=== PATIENT | female | born 1970 | race African-American/Black ===

== ENCOUNTER 2016-04-06 09:40 | Emergency (ER) ==
[2016-04-06] MEDS ORDERED: DUONEB (A & A) INH ONE ×2 (10:53→11:10)
[2016-04-06] MEDS ORDERED: DECADRON IM ONE (10:53)
--- NOTE | 2016-04-06 10:54 | PROVIDER DOCUMENTATION ---
HPI-Respiratory General - General Source: patient - History of Present Illness-Resp Quality of Pain: reports: none Severity in ED: reports: moderate Onset/Duration: reports: 3 days ago Timing: reports: getting worse Cough Quality/Degree: reports: dry cough Current Respiratory Medication Therapy: Initiated see nurses note Modifying Factors: worse with: exertion Similar Symptoms Previously?: Yes Recently seen or treated by another doctor?: Yes <Salome Schmitz - Last Filed: 04/06/16 11:13> - General Source: patient <Adela Aragon - Last Filed: 04/06/16 12:03> - General Chief Complaint: Wheezing Stated Complaint: ASTHMA/SOB Time Seen by Provider: 04/06/16 10:50 Allergies/Adverse Reactions: Patient Allergies Allergy/AdvReac Type Severity Reaction Status Date / Time acetaminophen [From Lortab] AdvReac NAUSEA/VOMI Verified 04/06/16 10:12 TING hydrocodone bitartrate * AdvReac NAUSEA/VOMI Verified 04/06/16 10:12 [From Lortab] TING Home Medications: Albuterol Sulfate [Proair Hfa] 1 dose 04/06/16 Albuterol [Albuterol Neb] 1 dose 04/06/16 - History of Present Illness-Resp Nature of Presenting Problem: Hx of asthma takes albuterol treatments at home reports started having sob on monday and then on Monday cough with fever yesterday. PT reports wheezing and dyspnea on exertion. Went to see this morning which sent pt to [facility] (Salome Schmitz) Review of Systems - Adult - REVIEW OF SYSTEMS - ADULT Constitutional: denies: chills, fever, fatique Eyes: reports: no symptoms reported Ears, Nose, Mouth & Throat: reports: no symptoms reported Cardiovascular: denies: chest pain, irregular heart rate, orthopnea Respiratory: reports: cough, dyspnea on exertion, shortness of breath, wheezing . denies: excessive sputum production, hemoptysis, pleurisy Gastrointestinal: reports: no symptoms reported Genitourinary: reports: no symptoms reported Musculoskeletal: reports: no symptoms reported Integumentary: reports: no symptoms reported Neurological: reports: no symptoms reported Psychiatric: reports: no symptoms reported Endocrine: reports: no symptoms reported Hematologic/Lymphatic: reports: no symptoms reported Allergic/Immunologic: reports: no symptoms reported All Other Systems: Reviewed and Negative <Salome Schmitz - Last Filed: 04/06/16 11:13> Past History - Adult - PAST MEDICAL HISTORY-ADULT Review of Records: reports: Nursing Assessment Review Major Childhood Illnesses: reports: denies history Respiratory: reports: asthma - PRIOR SURGERIES/PROCEDURES Surgical/Procedure History: reports: hysterectomy - IMMUNIZATION STATUS Childhood Immunizations: See Nurse Assessment - FAMILY HISTORY Family History: reviewed, not pertinent - SOCIAL HISTORY Smoking: denies Substance Use: none/never <Salome Schmitz - Last Filed: 04/06/16 11:13> Physical Exam-General - PHYSICAL EXAM-ADULT Initial Vital Signs Reviewed: Yes - CONSTITUTIONAL General Appearance: appears well, alert, no apparent distress - EYES Eyes: PERRL/EOMI, pink conjunctivae - HEAD, EARS, NOSE, MOUTH & THROAT HENMT: normocephalic/atraumatic, moist mucous membranes, normal ENT inspection - NECK Neck: non-tender, full range of motion, supple, normal inspection - RESPIRATORY Respiratory: chest non-tender, normal breath sounds, no pleuratic chest pain, no respiratory distress, no accessory muscle use, wheezing (all lung jaimes) - CARDIOVASCULAR Cardiovascular: normal peripheral pulses, regular rate, rhythm, no edema - GASTROINTESTINAL (ABDOMEN) Abdominal Exam: normal bowel sounds, non tender, soft - LYMPHATIC Lymphatic: no adenopathy - MUSCULOSKELETAL Back Exam: normal inspection, no CVA tenderness, no vertebral tenderness Extremity: normal range of motion, non-tender, normal gait - SKIN Integumentary: normal color, normal turgor, warm/dry - NEUROLOGIC Neurologic: grossly normal, no motor/sensory deficits - PSYCHIATRIC Psych/Mental Status: normal mood/affect, normal thought content, normal thought process, oriented x 3 <Salome Schmitz - Last Filed: 04/06/16 11:13> Progress <Salome Schmitz - Last Filed: 04/06/16 11:13> - XRAY 1 XRAY: Bilateral XRAY Study: Chest Impression: Normal (NAD ER prelim) <Adela Aragon - Last Filed: 04/06/16 12:03> - PLAN OF CARE/RESULTS Progress/Plan/Lab Results: Orders Category Date Time Status CHEST-2 VIEWS [RAD] Stat Exams 04/06/16 10:14 Taken CBC WITH ELECTRONIC DIFF [HEME] Stat Lab 04/06/16 10:51 Ordered CMP [COMPREHENSIVE METABOLIC PANEL] [CHEM] Stat Lab 04/06/16 10:51 Ordered Albuterol 2.5MG/Ipratrop 0.5MG [Duoneb (A & A)] Med 04/06/16 11:11 Discontinued 3 ml .ROUTE .STK-MED ONE Albuterol 2.5MG/Ipratrop 0.5MG [Duoneb (A & A)] Med 04/06/16 10:53 Discontinued 3 ml INH NOW ONE Albuterol 2.5MG/Ipratrop 0.5MG [Duoneb (A & A)] Med 04/06/16 11:10 Discontinued 3 ml INH NOW ONE Dexamethasone [Decadron] Med 04/06/16 10:53 Discontinued 4 mg IM NOW ONE Aerosol Treatments Routine Oth 04/06/16 10:53 Active Aerosol Treatments Routine Oth 04/06/16 11:10 Active Aerosol Treatments Stat Oth 04/06/16 10:53 Active Aerosol Treatments Stat Ot 04/06/16 11:10 Active Vital Signs - 24 hr 04/06/16 10:07 Temperature 99.1 F Pulse Rate 97 H Respiratory 22 Rate Blood Pressure 134/92 O2 Sat by Pulse 98 Oximetry (Salome Schmitz) Vital Signs Temp Pulse Resp BP Pulse Ox 04/06/16 10:07 99.1 F 97 H 22 134/92 98 acetaminophen [From Lortab] Adverse Reaction (Verified 04/06/16 10:12) NAUSEA/VOMITING hydrocodone bitartrate * [From Lortab] Adverse Reaction (Verified 04/06/16 10:12 ) NAUSEA/VOMITING Albuterol Sulfate [Proair Hfa] 1 dose 04/06/16 Albuterol [Albuterol Neb] 1 dose 04/06/16 Laboratory 04/06/16 04/06/16 11:18 11:18 WBC 4.40 L RBC 4.39 Hgb 13.5 Hct 42.2 MCV 96.1 MCH 30.8 MCHC 32.0 L RDW Std Deviation 13.9 Plt Count 277 MPV 9.6 Immature Gran % (Auto) 0.2 Neut % (Auto) 49.9 Lymph % (Auto) 34.1 Long % (Auto) 12.3 H Eos % (Auto) 3.0 Baso % (Auto) 0.5 Immature Gran # (Auto) 0.01 Neut # (Auto) 2.20 Lymph # (Auto) 1.50 Long # (Auto) 0.54 Eos # (Auto) 0.13 Baso # (Auto) 0.02 Sodium 139 Potassium 4.4 Chloride 104 Carbon Dioxide 27 Anion Gap 8 BUN 7 L Creatinine 0.8 Estimated GFR/1.73 m2 > 60 BUN/Creatinine Ratio 9 Glucose 90 Calculated Osmolality 275 Calcium 9.6 Total Bilirubin 0.30 AST 65 H ALT 89 H Alkaline Phosphatase 136 H Total Protein 8.5 H Albumin 4.3 Globulin 4.0 Albumin/Globulin Ratio 1.0 Orders Category Date Time Status CHEST-2 VIEWS [RAD] Stat Exams 04/06/16 10:14 Taken CBC WITH ELECTRONIC DIFF [HEME] Stat Lab 04/06/16 11:18 Completed CMP [COMPREHENSIVE METABOLIC PANEL] [CHEM] Stat Lab 04/06/16 11:18 Completed Albuterol 2.5MG/Ipratrop 0.5MG [Duoneb (A & A)] Med 04/06/16 11:11 Discontinued 3 ml .ROUTE .STK-MED ONE Albuterol 2.5MG/Ipratrop 0.5MG [Duoneb (A & A)] Med 04/06/16 10:53 Discontinued 3 ml INH NOW ONE Albuterol 2.5MG/Ipratrop 0.5MG [Duoneb (A & A)] Med 04/06/16 11:10 Discontinued 3 ml INH NOW ONE Dexamethasone [Decadron] Med 04/06/16 10:53 Discontinued 4 mg IM NOW ONE Aerosol Treatments Routine Oth 04/06/16 10:53 Active Aerosol Treatments Routine Oth 04/06/16 11:10 Active Aerosol Treatments Stat Oth 04/06/16 10:53 Active Aerosol Treatments Stat Oth 04/06/16 11:10 Active (Adela Aragon) Departure <Salome Schmitz - Last Filed: 04/06/16 11:13> - Departure Time of Disposition Order: 12:00 Certified Medical Emergency: Emergent <Adela Aragon - Last Filed: 04/06/16 12:03> - Departure DIAGNOSIS: Asthma exacerbation, Bronchitis Disposition: HOME 01 Condition: Stable Additional Instructions: Follow up with your primary care physician ED Follow Up Instructions: You have been treated by a care provider in the Emergency Department. These instructions are being provided to you so you can have an understanding of how to care for yourself upon discharge. Upon discharge from the Emergency Department, you are responsible for making arrangements for follow-up care by a physician of your choice. Take all prescribed medications as directed. Return to the Emergency Department immediately for any new or worsening symptoms. You may call the Physician Referral phone number at [phone] to obtain a list of Physicians who are taking new patients. Prescriptions: Prednisone [Deltasone] 20 mg PO DIRECTED #12 tablet Azithromycin [Zithromax Z-Francisco] 250 mg PO DIRECTED #1 pkg Attestation - Scribe Verification/Attestation Scribe:: Salome Schmitz Acting as Scribe for:: Adela Aragon Scribe documention review:: This chart was documented by a scribe and accurately reflects the service the provider performed and the decisions made by the provider. <Salome Schmitz - Last Filed: 04/06/16 11:13> - Physician/ Mid-level Attestation Patient care was provided by Mid-level provider (LIVESTOCK AGENT/PA):: Yes Mid-level provider:: Adela Aragon Mid-level documentation review:: The Mid-level provider documentation, treatment plan and medical decision making was reviewed by the physician who agrees with all treatment and medical decision making by the MLP. <Adela Aragon - Last Filed: 04/06/16 12:03> Physician Attestation
[2016-04-06] MEDS ORDERED: DUONEB (A & A) ONE (11:11)
[2016-04-06 11:30] LABS: MANUAL DIFF NEEDED? NO
[2016-04-06 11:36] LABS: BASO% 0.5 % (0.0-0.8); EOS# 0.13 X1000 (0.0-0.7); HEMATOCRIT 42.2 % (37.0-47.0); HEMOGLOBIN 13.5 g/dL (12.0-16.0); IMM GRAN# 0.01 X1000 (0.0-0.04); IMM GRAN% 0.2 % (0.0-0.5); LYMPH% 34.1 % (20.5-51.1); MCH 30.8 PG (27-31); MCV 96.1 FL (81-99); MONO# 0.54 X1000 (0.11-0.59); MONO% 12.3 % (1.7-9.3); MPV 9.6 FL (7.4-10.4); NEUT% 49.9 % (42.2-75.2); PLT 277 X1000 (130-400); RBC 4.39 XMIL (4.2-5.4)
[2016-04-06 11:57] LABS: AGAP 8; ALBUMIN 4.3 g/dL (3.5-5.0); ALKALINE PHOSPHATASE 136 U/L (32-104); BUN 7 mg/dL (8-22); CALCIUM 9.6 mg/dL (8.8-10.2); CHLORIDE 104 mmol/L (98-107); COSMO 275; GOT 65 U/L (10-30); GPT 89 U/L (10-36); POTASSIUM 4.4 mmol/L (3.5-5.1); SODIUM 139 mmol/L (136-145); TCO2 27 mmol/L (25-35); TOTAL PROTEIN 8.5 g/dL (6.3-8.3)
[2016-04-06] MEDS ORDERED: ALBUTEROL NEB INH ONE (12:06)
--- NOTE | 2016-04-06 13:00 | Diag Imaging Result Document ---
PROCEDURE NAME: CHEST-2 VIEWS - 04/06/2016 TWO VIEWS OF THE CHEST: Normal chest.
[2016-04-06 13:32] VITALS: BP 129/91
== END 2016-04-06 13:35 | disposition home or self-care (01) ==
LOC: P.ED 09:40
DX: J40 Bronchitis, not specified as acute or chronic (principal); J45.901 Unspecified asthma with (acute) exacerbation; R05 Cough; R06.02 Shortness of breath; R06.2 Wheezing; R50.9 Fever, unspecified; R06.00 Dyspnea, unspecified
CPT/HCPCS: 71020; 80053; 85025; 94640; 96372; J1100